=== PATIENT | female | born 1995 | race Caucasian/White ===

== ENCOUNTER 2017-04-13 15:27 | Emergency (ER) | payer SELFPAY ==
--- NOTE | 2017-04-13 15:53 | ER Document Report ---
ED Medical Screen (RME) - General Chief Complaint: Suicidal Ideation Stated Complaint: PSYCH EVAL Time Seen by Provider: 04/13/17 15:49 Mode of Arrival: Ambulatory Information source: Patient Notes: Patient is 21 year old who presents with suicidal ideations with plan of suffocation. She has history of psych illness, depression, borderline personality disorder, ADHD, PTSD. She endorses medication compliance. She denies any homicidal ideation, auditory, tactile, or visual hallucinations. She presents voluntary. She denies any other symptoms. TRAVEL OUTSIDE OF THE [place] IN LAST 30 DAYS: No - Related Data Allergies/Adverse Reactions: Coconut * [Coconut] Allergy (Verified 04/13/17 15:49) oxcarbazepine [From Trileptal] Allergy (Verified 04/13/17 15:49) Past Medical History - General Information source: Patient, Parent Psychiatric Medical History: Reports: Hx Anxiety, Hx Attention Deficit Hyperactivity Disorder, Hx Bipolar Disorder, Hx Depression - hx suicide attempts ; cutting/ biting self - Immunizations Immunizations up to date: Yes Hx Diphtheria, Pertussis, Tetanus Vaccination: Yes Review of Systems - Review of Systems Constitutional: No symptoms reported EENT: No symptoms reported Cardiovascular: No symptoms reported Respiratory: No symptoms reported Gastrointestinal: No symptoms reported Genitourinary: No symptoms reported Female Genitourinary: No symptoms reported Musculoskeletal: No symptoms reported Skin: No symptoms reported Hematologic/Lymphatic: No symptoms reported Neurological/Psychological: See HPI Physical Exam - Notes Notes: PHYSICAL EXAM: General: alert and oriented, well appearing, speaking in full sentences Lungs: CTAB CV: RRR, no murmur, normal S1 and S2. Psych: flat affect, +SI, no HI, no hallucinations Course - Re-evaluation Re-evalutation: 04/13/17 15:52 I have greeted and performed a rapid initial assessment of this patient. A comprehensive ED assessment and evaluation of the patient, analysis of test results and completion of the medical decision making process will be conducted by additional ED providers.
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
--- NOTE | 2017-04-13 17:24 | ER Document Report ---
ED General - General Chief Complaint: Suicidal Ideation Stated Complaint: PSYCH EVAL Time Seen by Provider: 04/13/17 15:49 Mode of Arrival: Ambulatory Information source: Patient, Parent Notes: Patient is 21 year old who presents with suicidal ideations with plan of suffocation. She has history of psych illness, depression, borderline personality disorder, ADHD, PTSD. She endorses medication compliance. She denies any homicidal ideation, auditory, tactile, or visual hallucinations. She presents voluntary. She denies any other symptoms. Her mother is present during initial evaluation. She denies any pain. TRAVEL OUTSIDE OF THE [place] IN LAST 30 DAYS: No - Related Data Allergies/Adverse Reactions: Coconut * [Coconut] Allergy (Verified 04/13/17 15:49) oxcarbazepine [From Trileptal] Allergy (Verified 04/13/17 15:49) Past Medical History - General Information source: Patient, Parent - Social History Smoking Status: Never Smoker Chew tobacco use (# tins/day): No Frequency of alcohol use: None Drug Abuse: None Family History: Reviewed & Not Pertinent Patient has suicidal ideation: Yes Patient has homicidal ideation: No Renal/ Medical History: Denies: Hx Peritoneal Dialysis Psychiatric Medical History: Reports: Hx Anxiety, Hx Attention Deficit Hyperactivity Disorder, Hx Bipolar Disorder, Hx Depression - hx suicide attempts ; cutting/ biting self - Immunizations Immunizations up to date: Yes Hx Diphtheria, Pertussis, Tetanus Vaccination: Yes Review of Systems - Review of Systems Constitutional: See HPI EENT: No symptoms reported Cardiovascular: No symptoms reported Respiratory: No symptoms reported Gastrointestinal: No symptoms reported Genitourinary: No symptoms reported Female Genitourinary: No symptoms reported Musculoskeletal: No symptoms reported Skin: No symptoms reported Hematologic/Lymphatic: No symptoms reported Neurological/Psychological: See HPI Physical Exam - Notes Notes: PHYSICAL EXAM: CONSTITUTIONAL: Alert and oriented, well-appearing and in no acute distress. HENT: Normocephalic, atraumatic. Ear canals without erythema or foreign body, TMs pearly gonzalez with good bony landmarks. Nares clear without erythema, septal hematoma or deviation, airway patent. Oropharynx clear without erythema, tonsilar exudate or malocclusion. Trachea midline. Uvula midline. Moist mucous membranes. EYES: Pupils equal round and reactive to light, EOM intact. Sclera anicteric, conjunctiva are normal. No entrapment. NECK: supple without lymphadenopathy. No midline tenderness or paraspinous muscle spasms. No step-offs or deformities. ROM intact. HEART: Regular rate and rhythm without murmurs. LUNGS: CTAB and equal. No wheezes, rales or rhonchi. GI: Normactive bowel sounds. Nontender, non-distended. No organomegaly. no CVAT. BACK: nontender, no paraspinous spasm, 5+/5 strengths, DTRs 2+, SLR -. EXTREMITIES: Normal range of motion, no pitting edema. No cyanosis. Cap Refill < 3 seconds. NEURO: Cranial nerves grossly intact. Normal sensory/motor exams. PSYCH: Normal mood, affect. SKIN: Warm and dry. Normal turgor. No rashes or lesions noted. Course - Re-evaluation Re-evalutation: 04/13/17 17:55 Patient seen and evaluated. She does endorse suicidal ideations. She was evaluated by psych triage and was discussed with Dr. Stafford, neuropsych escalation engineer who recommended that she did not meet IVC criteria. It was explained that we could not place nursing home from the emergency department and patient states " I don't want short term" and that she feels safe at home with her mother and stepfather. She is going to therapy at [facility], seeing therapist Catrina Chand and she states this is "helping a lot." Per Dr. Stafford's recommendations, patient is to d/c trazodone as this could be contributing to her nightmares and recommends 0.1 mg clonidine qhs. Discussed with patient and patient's mother who are in agreement with plan. I have consulted with the supervisory physician per [facility] guidelines. Discharge - Discharge Clinical Impression: Major depressive disorder, recurrent, unspecified Qualifiers: Active/Remission status: currently active Major depression episode severity: moderate Qualified Code(s): F33.1 - Major depressive disorder, recurrent, moderate Condition: Stable Disposition: HOME, SELF-CARE Additional Instructions: Discontinue trazodone Start taking 0.1 mg clonidine once daily at night before sleep. Follow-up with your therapist as directed. Return if symptoms worsen. Prescriptions: Clonidine HCl 0.1 mg PO QHS #30 tablet
== END 2017-04-13 18:15 | disposition home or self-care (01) ==
LOC: ER 15:27
DX: F33.1 Major depressive disorder, recurrent, moderate (principal); R45.851 Suicidal ideations
CPT/HCPCS: 99285

== ENCOUNTER → 2018-05-06 | Outpatient (CLI) | payer OTHER ==
[2018-05-06 08:38] LABS: ABSOLUTE EOSINOPHILS # (AUTO) 0.5 10^3/uL (0.0-0.6); ABSOLUTE LYMPHOCYTES (AUTO) 2.4 10^3/uL (0.5-4.7); ABSOLUTE MONOCYTES (AUTO) 0.6 10^3/uL (0.1-1.4); BASOPHILS % (AUTO) 0.5 % (0-2); HEMATOCRIT 37.7 % (36.0-47.0); HEMOGLOBIN 12.9 g/dL (12.0-15.5); LYMPHOCYTES % (AUTO) 32.1 % (13-45); MEAN CORPUSCULAR HEMOGLOBIN 29.8 pg (27.0-33.4); MEAN CORPUSCULAR HGB CONC 34.3 g/dL (32.0-36.0); MEAN CORPUSCULAR VOLUME 87 fl (80-97); MONOCYTES % (AUTO) 7.7 % (3-13); PLATELET COUNT 297 10^3/uL (150-450); RED BLOOD COUNT 4.34 10^6/uL (3.72-5.28); SEGMENTED NEUTROPHILS % (AUTO) 53.7 % (42-78); TOTAL CELLS COUNTED % (AUTO) 100 %; WHITE BLOOD COUNT 7.5 10^3/uL (4.0-10.5)
[2018-05-06 09:08] LABS: ALANINE AMINOTRANSFERASE 17 U/L (9-52); ALBUMIN 3.8 g/dL (3.5-5.0); ALKALINE PHOSPHATASE 64 U/L (38-126); ANION GAP 6 (5-19); ASPARTATE AMINO TRANSFERASE 23 U/L (14-36); BILIRUBIN,DIRECT 0.2 mg/dL (0.0-0.4); BILIRUBIN,TOTAL 0.5 mg/dL (0.2-1.3); BLOOD UREA NITROGEN 8 mg/dL (7-20); CALCIUM 9.1 mg/dL (8.4-10.2); CARBON DIOXIDE 26 mmol/L (22-30); CHLORIDE 107 mmol/L (98-107); CHOLESTEROL 193.22 mg/dL (0-200); GLUCOSE 78 mg/dL (75-110); SODIUM 138.9 mmol/L (137-145); TOTAL PROTEIN 6.4 g/dL (6.3-8.2); TRIGLYCERIDES 97 mg/dL (<150)
[2018-05-06 09:19] LABS: DIRECT LDL 102 mg/dL (<100)
== END ==
LOC: CCC 07:10
DX: R51 Headache (principal); R63.5 Abnormal weight gain
CPT/HCPCS: 36415; 80053; 80061; 83036; 84443; 85025

== ENCOUNTER → 2018-05-18 | Outpatient (CLI) | payer OTHER ==
--- NOTE | 2018-05-18 10:39 | RADIOLOGY REPORT (SQ) ---
EXAM DESCRIPTION: MRI HEAD COMBO COMPLETED DATE/TIME: 05/18/2018 9:42 am REASON FOR STUDY: HEADACHES R51 HEADACHE COMPARISON: None. TECHNIQUE: Multiplanar imaging includes noncontrasted T1, T2, FLAIR, diffusion with ADC map and post gadolinium contrast T1 sequences. Images stored on PACS. CONTRAST TYPE AND DOSE: 15 mL Dotarem. RENAL FUNCTION: None required. The patient is less than 50 years old. LIMITATIONS: None. FINDINGS: ANATOMY: No anomalies. Normal vascular flow voids. Pituitary fossa normal. CSF SPACES: Normal in size and contour. No hemorrhage. CEREBRUM: Sulci and gyri normal in size and contour. Normal white matter signal on FLAIR imaging. No evidence of hemorrhage, mass, or extraaxial fluid collection. No abnormal enhancement post contrast. POSTERIOR FOSSA: No signal alteration. No hemorrhage. No edema, masses, or mass effect. Internal echo tory canals, cerebellopontine angles, mastoids normal. No enhancing lesions. No abnormal enhancement post contrast. DIFFUSION IMAGING: Negative for acute or subacute infarction. ORBITS: No masses. Globes normal. PARANASAL SINUSES: No fluid levels. Mucosa normal. OTHER: No other significant finding. IMPRESSION: NORMAL MRI OF THE BRAIN WITHOUT AND WITH INTRAVENOUS GADOLINIUM CONTRAST. EVIDENCE OF ACUTE STROKE: NO. TECHNICAL DOCUMENTATION: JOB ID: [id number] [employer]- All Rights Reserved Reading location - IP/workstation name: [email or web address]
== END ==
LOC: RAD 08:26
DX: R51 Headache (principal)
CPT/HCPCS: 70553; A9576

== ENCOUNTER 2018-09-04 17:52 | Emergency (ER) | payer OTHER ==
[2018-09-04] MEDS ORDERED: CLINDAMYCIN 600 MG/D5W RTU 600 MG/50 ML RTUPB IV ONE (19:31)
--- NOTE | 2018-09-04 19:31 | ER Document Report ---
ED Medical Screen (RME) - General Chief Complaint: Abscess Stated Complaint: ABSCESS Time Seen by Provider: 09/04/18 19:25 Primary Care Provider: [facility] [Primary Care Provider] - Follow up as needed TRAVEL OUTSIDE OF THE [place] IN LAST 30 DAYS: No - HPI Notes: 09/04/18 19:29 Patient is a 23-year-old female with no significant past medical history who presents complaining of possible abscess near her rectum for the past 2 weeks. Patient states that she has pain associated and swelling. She is not sure if there is any drainage. She has not had an abscess in this area before. She is otherwise eating and drinking without difficultly. She is urinating normally. Patient is still able to have bowel movements, but does have a burning pain in doing so. Denies LEMON, fever, neck pain, URI, CP, SOB, Abd pain. I have treated and performed a rapid initial assessment of this patient. A comprehensive ED assessment and evaluation of the patient, analysis of test results and completion of medical decision making process will be conducted by additional ED providers. PHYSICAL EXAMINATION: GENERAL: Well-appearing, well-nourished and in no acute distress. A&Ox4. Answers questions appropriately. Buttocks: with female RN, chanel, present. Brief exam shows fluctuant, tender, erythemic area near the rectum on the left buttock but will need further evalua tion in a gown and on a bed. - Related Data Allergies/Adverse Reactions: Coconut * [Coconut] Allergy (Verified 09/04/18 17:53) oxcarbazepine [From Trileptal] Allergy (Verified 09/04/18 17:53) Past Medical History Renal/ Medical History: Denies: Hx Peritoneal Dialysis Psychiatric Medical History: Reports: Hx Anxiety, Hx Attention Deficit Hyperactivity Disorder, Hx Bipolar Disorder, Hx Depression - hx suicide attempts; cutting/ biting self - Immunizations Immunizations up to date: Yes Hx Diphtheria, Pertussis, Tetanus Vaccination: Yes Physical Exam - Vital signs Vitals: Temp Pulse Resp BP Pulse Ox 98 F 87 20 118/65 96 09/04/18 18:03 09/04/18 18:03 09/04/18 18:03 09/04/18 18:03 09/04/18 18:03 Course - Vital Signs Vital signs: Temp Pulse Resp BP Pulse Ox 98 F 87 20 118/65 96 09/04/18 18:03 09/04/18 18:03 09/04/18 18:03 09/04/18 18:03 09/04/18 18:03 Doctor's Discharge - Discharge Referrals: [facility] [Primary Care Provider] - Follow up as needed
[2018-09-04 19:54] LABS: APPEARANCE,URINE CLOUDY; BILIRUBIN,URINE NEGATIVE (NEGATIVE); COLOR,URINE AMBER; GLUCOSE, URINE NEGATIVE (NEGATIVE); KETONES,URINE TRACE mg/dL (NEGATIVE); LEUKOCYTE ESTERASE,URINE MODERATE (NEGATIVE); NITRITE,URINE NEGATIVE (NEGATIVE); PROTEIN,URINE 100 mg/dL (NEGATIVE); URINE SPECIFIC GRAVITY 1.029
[2018-09-04 20:22] LABS: ABSOLUTE BASOPHILS # (AUTO) 0.1 10^3/uL (0.0-0.2); ABSOLUTE EOSINOPHILS # (AUTO) 0.1 10^3/uL (0.0-0.6); ABSOLUTE LYMPHOCYTES (AUTO) 2.1 10^3/uL (0.5-4.7); ABSOLUTE MONOCYTES (AUTO) 0.7 10^3/uL (0.1-1.4); ABSOLUTE NEUT (AUTO) 9.2 10^3/uL (1.7-8.2); BASOPHILS % (AUTO) 0.7 % (0-2); EOSINOPHILS % (AUTO) 0.4 % (0-6); HEMOGLOBIN 12.6 g/dL (12.0-15.5); LYMPHOCYTES % (AUTO) 17.2 % (13-45); MEAN CORPUSCULAR HEMOGLOBIN 27.2 pg (27.0-33.4); MEAN CORPUSCULAR HGB CONC 32.3 g/dL (32.0-36.0); MEAN CORPUSCULAR VOLUME 84 fl (80-97); MONOCYTES % (AUTO) 5.7 % (3-13); PLATELET COUNT 317 10^3/uL (150-450); RED BLOOD COUNT 4.64 10^6/uL (3.72-5.28); RED CELL DISTRIBUTION WIDTH 14.7 % (11.5-14.0); TOTAL CELLS COUNTED % (AUTO) 100 %; WHITE BLOOD COUNT 12.2 10^3/uL (4.0-10.5)
[2018-09-04 20:38] LABS: ALANINE AMINOTRANSFERASE 22 U/L (9-52); ALBUMIN 4.3 g/dL (3.5-5.0); ALKALINE PHOSPHATASE 85 U/L (38-126); ANION GAP 12 (5-19); ASPARTATE AMINO TRANSFERASE 18 U/L (14-36); BILIRUBIN,DIRECT 0.2 mg/dL (0.0-0.4); BILIRUBIN,TOTAL 0.5 mg/dL (0.2-1.3); BLOOD UREA NITROGEN 7 mg/dL (7-20); CALCIUM 9.9 mg/dL (8.4-10.2); CARBON DIOXIDE 26 mmol/L (22-30); CHLORIDE 104 mmol/L (98-107); GLUCOSE 86 mg/dL (75-110); POTASSIUM 4.3 mmol/L (3.6-5.0); SODIUM 141.5 mmol/L (137-145); TOTAL PROTEIN 7.1 g/dL (6.3-8.2)
[2018-09-04] MEDS ORDERED: KETOROLAC TROMETHAMINE INJ/PF 30 MG/1 ML SDV IV ONE (23:47)
[2018-09-04] MEDS ORDERED: SULFAMETHOXAZOLE/TRIMETHOPRIM 800-160 MG TABLET PO ONE (23:48)
--- NOTE | 2018-09-04 23:52 | ER Document Report ---
ED General - General Chief Complaint: Abscess Stated Complaint: ABSCESS Time Seen by Provider: 09/04/18 19:25 [facility] [NO LOCAL MD] - Follow up in 3-5 days Notes: Patient is a 23-year-old female without chronic medical problems who presents with an area of swelling and pain on her left inner buttock. Patient states that this area started approximately 2 weeks ago and has been getting progressively more swollen and painful since that time. Notes a severe, throbbing, constant pain to the area. Sitting on the area seems to worsen the pain. Nothing improves the pain. Denies any history of similar symptoms in the past. Denies fever or constitutional symptoms. Has not seen her primary care doctor regarding today's concerns. TRAVEL OUTSIDE OF THE [place] IN LAST 30 DAYS: No - Related Data Allergies/Adverse Reactions: Coconut * [Coconut] Allergy (Verified 09/04/18 17:53) oxcarbazepine [From Trileptal] Allergy (Verified 09/04/18 17:53) Past Medical History - Social History Smoking Status: Unknown if Ever Smoked Family History: Reviewed & Not Pertinent Patient has suicidal ideation: No Patient has homicidal ideation: No Renal/ Medical History: Denies: Hx Peritoneal Dialysis Psychiatric Medical History: Reports: Hx Anxiety, Hx Attention Deficit Hyperactivity Disorder, Hx Bipolar Disorder, Hx Depression - hx suicide attempts; cutting/ biting self - Immunizations Immunizations up to date: Yes Hx Diphtheria, Pertussis, Tetanus Vaccination: Yes Physical Exam - Vital signs Vitals: Temp Pulse Resp BP Pulse Ox 98 F 87 20 118/65 96 09/04/18 18:03 09/04/18 18:03 09/04/18 18:03 09/04/18 18:03 09/04/18 18:03 Interpretation: Normal Notes: PHYSICAL EXAMINATION: GENERAL: Appears moderately uncomfortable but in no acute distress HEAD: Atraumatic, normocephalic. EYES: Pupils equal round and reactive to light, extraocular movements intact, sclera anicteric, conjunctiva are normal. ENT: nares patent, oropharynx clear without exudates. Moist mucous membranes. NECK: Normal range of motion LUNGS: Breath sounds clear to auscultation bilaterally and equal. No wheezes rales or rhonchi. HEART: Regular rate and rhythm without murmurs ABDOMEN: Soft, nontender, normoactive bowel sounds. No guarding, no rebound. No masses appreciated. Rectal: There is a gluteal abscess approximately 4 cm lateral to the anus. Digital rectal exam without evidence of communication of abscess. The abscess is open and draining purulent drainage EXTREMITIES: Normal range of motion, no pitting or edema. No cyanosis. NEUROLOGICAL: No focal neurological deficits. Moves all extremities spontaneously and on command. PSYCH: Normal mood, normal affect. SKIN: Warm, Dry, normal turgor, no rashes or lesions noted. Course - Re-evaluation Re-evalutation: 09/04/18 23:49 Patient presents with a left intergluteal abscess without any evidence of rectocutaneous fistula on digital exam. The abscess with early draining when I began to move her buttock. The area was further incised and drained to allow for better removal of purulent material and placement of packing. No fever or constitutional symptoms. No starting saline. No indication for imaging or labs at this point. Patient has been started on trimethoprim sulfamethoxazole, [id number] analgesics. At this time will discharge with return precautions and follow-up recommendations. Verbal discharge instructions given a the bedside and opportunity for questions given. Medication warnings reviewed. Patient is in agreement with this plan and has verbalized understanding of return precautions and the need for primary care follow-up in the next 24-72 hours. - Vital Signs Vital signs: Temp Pulse Resp BP Pulse Ox 97.3 F 79 16 120/63 97 09/05/18 00:27 09/05/18 00:27 09/05/18 00:27 09/05/18 00:27 09/05/18 00:27 - Laboratory Result Diagrams: 09/04/18 19:50 09/04/18 19:50 Laboratory results interpreted by me: 09/04/18 09/04/18 19:38 19:50 WBC 12.2 H RDW 14.7 H Absolute Neutrophils 9.2 H Urine Protein 100 H Urine Ketones TRACE H Urine Blood SMALL H Urine Urobilinogen 4.0 H Ur Leukocyte Esterase MODERATE H Procedures - Incision and Drainage Left Buttock Type: Simple Anesthetic type: 1% Lidocaine mL's of anesthetic: 3 Blade size: 11 I&D procedure: Betadine prep applied, Iodoform packing placed Incision Method: Incision made by scalpel Amount/type of drainage: 10 cc purulent drainage Discharge - Discharge Clinical Impression: Abscess, gluteal, left Condition: Good Disposition: HOME, SELF-CARE Additional Instructions: You were seen for an abscess that required drainage. If the packing has not fallen out within 24 hours please remove it on your own. Please clean this area with soap and water twice daily after removal of packing. Dress the area after each cleaning. Please return if you develop fever (>100.4), vomiting, the pain at the site worsens, you notice spreading redness from the area, or you have any other symptoms that are concerning to you. For your pain: Take ibuprofen 600 mg and acetaminophen 1000 mg every 6 hours together as needed for pain. Prescriptions: Sulfamethoxazole/Trimethoprim [Bactrim Ds Tablet] 2 tab PO BID #28 tablet Referrals: [facility] [NO LOCAL MD] - Follow up in 3-5 days
[2018-09-05 00:29] VITALS: BP 120/63
== END 2018-09-05 00:27 | disposition home or self-care (01) ==
LOC: ER 17:52
DX: L02.31 Cutaneous abscess of buttock (principal)
CPT/HCPCS: 99283; 36415; 84703; 85025; 80053; 81001; 10060; A6266; J1885

== ENCOUNTER 2018-09-22 06:16 | Emergency (ER) | payer OTHER ==
[2018-09-22] MEDS ORDERED: TRIAMCINOLONE ACETONIDE 0.1% CREAM 15 GM TOP ONE (08:29)
[2018-09-22] MEDS ORDERED: LIDOCAINE 2% VISCOUS SOLN 20 ML UDCUP PO ONE (08:29)
--- NOTE | 2018-09-22 08:32 | ER Document Report ---
HPI - HPI Patient complains to provider of: rash on butt and ulcer in mouth Time Seen by Provider: 09/22/18 08:07 Pain Level: 5 Context: 23 female presents emergency intragluteal crease bilateral and and an ulcer on her lip. She was seen at [facility] yesterday and was given tetracycline for flushes in her mouth and prednisone. After doing to swishes with the tetracycline she says she started developing a rash on her butt and she had some nystatin powder laying around she should try to use that once with no resolution. She said the ulcer is been present for 1 week and has not been improving. She denies any fevers or chills, dysphagia, sensation of her throat closing up, shortness of breath, abdominal pain or vomiting, or any other cutaneous eruption. No other complaints - CONSTITUTIONAL Constitutional: DENIES: Fever, Chills - REPRODUCTIVE Reproductive: DENIES: : Past Medical History - Social History Smoking Status: Current Every Day Smoker Family History: Reviewed & Not Pertinent Patient has suicidal ideation: No Patient has homicidal ideation: No Renal/ Medical History: Denies: Hx Peritoneal Dialysis Psychiatric Medical History: Reports: Hx Anxiety, Hx Attention Deficit Hyperactivity Disorder, Hx Bipolar Disorder, Hx Depression - hx suicide attempts; cutting/ biting self - Immunizations Immunizations up to date: Yes Hx Diphtheria, Pertussis, Tetanus Vaccination: Yes Vertical Provider Document - CONSTITUTIONAL Notes: PHYSICAL EXAMINATION: Reviewed vital signs and charting by RN GENERAL: Alert, interacts well. No acute distress. HEAD: Normocephalic, atraumatic. EYES: Pupils equal and round. Extraocular movements intact. ENT: Oral mucosa moist, tongue midline. NECK: Full range of motion. Trachea midline. LUNGS: Clear to auscultation bilaterally, no wheezes, rales, or rhonchi. No resp iratory distress. HEART: Regular rate and rhythm. No murmur ABDOMEN: soft, non-tender. No distention. Bowel sounds present EXTREMITIES: Moves all 4 extremities spontaneously. No edema, No cyanosis. PSYCH: Normal affect, normal mood. SKIN: Aphthous ulcer on the lower lip left side, bilateral intergluteal spot of erythema that runs the course of the crease approximately 1 inch wide, no pustules, no open wound, appears to be flat with no surrounding underlying erythema consistent with cellulitis - INFECTION CONTROL TRAVEL OUTSIDE OF THE [place] IN LAST 30 DAYS: No Course - Re-evaluation Re-evalutation: 09/22/18 08:41 Well-appearing and nontoxic. Patient was seen here 2 weeks ago and placed on Bactrim but she said she did not tolerate it and did not complete the course. She said she could not tolerate the tetracycline oral rinses and discontinued it. Rash is consistent with a heat rash and the ulcer on her lip consistent with an aphthous ulcer. I have given her viscous lidocaine for symptomatic treatment of the ulcer, I have given her triamcinolone to use on the rash on her intergluteal folds, and instructed her to use nystatin alternating with the triamcinolone. I also told her to continue taking her prednisone and to stop taking the tetracycline. She is stable for discharge. - Vital Signs Vital signs: Temp Pulse Resp BP Pulse Ox 97.8 F 90 16 131/79 H 98 09/22/18 06:23 09/22/18 06:23 09/22/18 06:23 09/22/18 06:23 09/22/18 06:23 Discharge - Discharge Clinical Impression: Aphthous ulcer, Rash Condition: Good Disposition: HOME, SELF-CARE Additional Instructions: You were seen in the emergency department this morning for an aphthous ulcer on your lip and for a rash in between your gluteal folds. For the aphthous ulcer, you can use the light viscous lidocaine and place him on a cottonball and then hold it up against the ulcer and it well number to give you temporary relief. Do that every 2-3 hours or as needed before eating. For the rash between your gluteal crease, you can continue to use the nystatin powder and I have given you a medication called triamcinolone that you can use 3 times a day to help calm it down. This is in the same class as hydrocortisone but a little bit stronger medication. Also, continue taking the prednisone that your doctor prescribed yesterday but please stop taking the tetracycline. If you develop worsening rash, you get a reaction from the lidocaine, your throat starts to close up, your lip swells, you develop acute shortness of breath and your throat is getting tight, you get intractable vomiting and upset stomach, or the rash spreads and you get hives immediately return to the emergency department as t hese are signs of an allergic reaction. Follow-up with your primary doctor in the next 1 to 2 weeks.
[2018-09-22 09:10] VITALS: BP 129/76
== END 2018-09-22 09:10 | disposition home or self-care (01) ==
LOC: ER 06:16
DX: K12.0 Recurrent oral aphthae (principal); R21 Rash and other nonspecific skin eruption; Z79.899 Other long term (current) drug therapy; F17.200 Nicotine dependence, unspecified, uncomplicated
CPT/HCPCS: 99282; J3490 ×2

== ENCOUNTER 2018-12-17 17:23 | Emergency (ER) | payer OTHER ==
--- NOTE | 2018-12-17 18:22 | ER Document Report ---
HPI - HPI Patient complains to provider of: L knee injury Time Seen by Provider: 12/17/18 18:12 Pain Level: 4 Context: 23-year-old female with anxiety, major depressive disorder, ADHD, PTSD presents to the emergency department for a left knee injury sustained prior to arrival. Patient states that she struck her knee on a "dog step" and has since been unable to bear weight on it at all. There was an ice pack in place by EMS when she arrived. Patient states that she cannot extend her knee or flex her quadricep secondary to pain. Denies any numbness/tingling/paralysis. Patient is able to wiggle her toes, flex her hip, and move her ankle. - REPRODUCTIVE LMP: November Reproductive: DENIES: : Past Medical History - Social History Smoking Status: Current Every Day Smoker Family History: Reviewed & Not Pertinent Renal/ Medical History: Denies: Hx Peritoneal Dialysis Psychiatric Medical History: Reports: Hx Anxiety, Hx Attention Deficit Hyperactivity Disorder, Hx Bipolar Disorder, Hx Depression - hx suicide attempts; cutting/ biting self - Immunizations Immunizations up to date: Yes Hx Diphtheria, Pertussis, Tetanus Vaccination: Yes Vertical Provider Document - CONSTITUTIONAL Notes: PHYSICAL EXAMINATION: Reviewed vital signs and charting by RN GENERAL: Alert, interacts well. No acute distress. HEAD: Normocephalic, atraumatic. EYES: Pupils equal and round. Extraocular movements intact. ENT: Oral mucosa moist, tongue midline. EXTREMITIES: Moves all extremities spontaneously except for her left lower extremity at the knee, I was easily able to passively extend her knee and when I released it she was able to bring it down slowly and controlled, no laceration or abrasion, no tenderness to palpation of the joint lines but she has tenderness to palpation over the patella but no gross deformity seen. No edema, No cyanosis. PSYCH: Normal affect, normal mood. SKIN: Warm, dry, normal turgor. No rashes or lesions noted. - INFECTION CONTROL TRAVEL OUTSIDE OF THE [place] IN LAST 30 DAYS: No Course - Re-evaluation Re-evalutation: 12/17/18 19:28 Knee X-Ray 12/17/18 18:18 IMPRESSION: No radiographic evidence for acute fracture at the left knee. See above for radiology. No evidence of acute fracture dislocation, most likely a soft tissue injury. Plan is to give her an Eddie wrap and provide her crutches for ambulation. Patient is stable for discharge. - Vital Signs Vital signs: Temp Pulse Resp BP Pulse Ox 98.0 F 92 18 118/67 94 12/17/18 17:33 12/17/18 17:33 12/17/18 17:33 12/17/18 17:33 12/17/18 17:33 Discharge - Discharge Clinical Impression: Left knee injury Qualifiers: Encounter type: initial encounter Qualified Code(s): S89.92XA - Unspecified injury of left lower leg, initial encounter Condition: Good Disposition: HOME, SELF-CARE Instructions: Use of Crutches ([facility]), Suspected Internal Knee Injury ([facility]) Additional Instructions: You were seen in the emergency department this afternoon for left knee injury. X-ray did not show any evidence that you broke your knee. With that, we have placed you in an Eddie wrap to help with comfort and provided you with crutches to help you ambulate. Please follow-up with your primary doctor in the next several days if your pain does not improve. Please return to the emergency department if your toes start to turn purple or blue, you lose feeling in your leg, you lose use of your leg, or you have any other concerning symptoms.. Referrals: [facility] [Primary Care Provider] - Follow up as needed
--- NOTE | 2018-12-17 19:15 | RADIOLOGY REPORT (SQ) ---
EXAM DESCRIPTION: KNEE LEFT 3 VIEWS COMPLETED DATE/TIME: 12/17/2018 6:45 pm REASON FOR STUDY: Trauma L knee COMPARISON: None. NUMBER OF VIEWS: Three views. TECHNIQUE: AP, lateral, and sunrise patella radiographic images acquired of the left knee. LIMITATIONS: None. FINDINGS: MINERALIZATION: Normal. BONES: No acute fracture or dislocation. JOINT: No effusion. SOFT TISSUES: No soft tissue swelling. No radio-opaque foreign body. IMPRESSION: No radiographic evidence for acute fracture at the left knee. TECHNICAL DOCUMENTATION: JOB ID: [id number] 2010 [employer]- All Rights Reserved Reading location - IP/workstation name: [email or web address]
[2018-12-17 20:26] VITALS: BP 121/71
== END 2018-12-17 20:31 | disposition home or self-care (01) ==
LOC: ER 17:23
DX: S89.92XA Unspecified injury of left lower leg, initial encounter (principal); W22.8XXA Striking against or struck by other objects, initial encounter; F17.200 Nicotine dependence, unspecified, uncomplicated
CPT/HCPCS: 99283

== ENCOUNTER 2019-01-06 14:46 | Emergency (ER) | payer OTHER ==
--- NOTE | 2019-01-06 15:17 | ER Document Report ---
ED Medical Screen (RME) - General Chief Complaint: Suicidal Ideation Stated Complaint: SUICIADAL IDEATION Time Seen by Provider: 01/06/19 15:03 Primary Care Provider: LANDEN PALMER [Primary Care Provider] - Follow up as needed Notes: Patient is a 23-y/o female with a history of suicidal ideation who presents after tying a ribbon around her neck this morning. She states that her mother is leaving with her boyfriend and found out a few days ago. She attempted to commit suicide with the ribbon. Her father found her and was able to release the ribbon. States she came close to loosing consciousness, but did not. Exam: 2 Small abrasians noted to neck. Patient able to move neck with no difficulty. I have greeted and performed a rapid initial assessment of this patient. A comprehensive ED assessment and evaluation of the patient, analysis of test results and completion of medical decision making process will be conducted by an additional ED providers. TRAVEL OUTSIDE OF THE U.S. IN LAST 30 DAYS: No - Related Data Allergies/Adverse Reactions: Coconut * [Coconut] Allergy (Verified 09/04/18 17:53) oxcarbazepine [From Trileptal] Allergy (Verified 09/04/18 17:53) Past Medical History Renal/ Medical History: Denies: Hx Peritoneal Dialysis Psychiatric Medical History: Reports: Hx Anxiety, Hx Attention Deficit Hyperactivity Disorder, Hx Bipolar Disorder, Hx Depression - hx suicide attempts; cutting/ biting self - Immunizations Immunizations up to date: Yes Hx Diphtheria, Pertussis, Tetanus Vaccination: Yes Doctor's Discharge - Discharge Referrals: LANDEN PALMER [Primary Care Provider] - Follow up as needed
--- NOTE | 2019-01-06 15:20 | ER Document Report ---
ED Psych Disorder / Suicide <ALONZO DAY - Last Filed: 01/06/19 16:04> - General Mode of Arrival: Ambulatory Information source: Patient TRAVEL OUTSIDE OF THE [place] 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 Pt. with prior SI and suicide attempts, Suicidal attempt Onset: Just prior to arrival <BAILEY ZELAYA - Last Filed: 01/06/19 17:53> <ARIANA MANDUJANO - Last Filed: 01/08/19 01:34> - General Chief Complaint: Suicidal Ideation Stated Complaint: SUICIADAL IDEATION Time Seen by Provider: 01/06/19 15:03 Primary Care Provider: [facility] [Primary Care Provider] - Follow up as needed - Related Data Allergies/Adverse Reactions: Coconut * [Coconut] Allergy (Verified 01/06/19 16:41) oxcarbazepine [From Trileptal] Allergy (Verified 01/06/19 16:41) Past Medical History - Social History Family History: Reviewed & Not Pertinent Renal/ Medical History: Denies: Hx Peritoneal Dialysis Psychiatric Medical History: Reports: Hx Anxiety, Hx Attention Deficit Hyperactivity Disorder, Hx Bipolar Disorder, Hx Depression - hx suicide attempts; cutting/ biting self - Immunizations Immunizations up to date: Yes Hx Diphtheria, Pertussis, Tetanus Vaccination: Yes <BAILEY ZELAYA - Last Filed: 01/06/19 17:53> - Social History Smoking Status: Unknown if Ever Smoked <ARIANA MANDUJANO - Last Filed: 01/08/19 01:34> Physical Exam - Vital signs Vitals: Temp Pulse Resp BP Pulse Ox 97.5 F 86 16 126/68 H 97 01/06/19 14:49 01/06/19 14:49 01/06/19 14:49 01/06/19 14:49 01/06/19 14:49 Course - Laboratory Result Diagrams: 01/06/19 15:55 01/06/19 15:55 <BAILEY ZELAYA - Last Filed: 01/06/19 17:53> - Laboratory Result Diagrams: 01/06/19 15:55 01/06/19 15:55 <ARIANA MANDUJANO - Last Filed: 01/08/19 01:34> - Re-evaluation Re-evalutation: 01/06/19 17:54 I have medically cleared this pt -- she will be going to [place] later this evening -- approx 8 pm 01/06/19 17:55 (BAILEY ZELAYA) - Vital Signs Vital signs: Temp Pulse Resp BP Pulse Ox 97.7 F 77 16 126/65 H 97 01/06/19 20:17 01/06/19 20:17 01/06/19 20:17 01/06/19 20:17 01/06/19 20:17 - Laboratory Laboratory results interpreted by me: 01/06/19 01/06/19 01/06/19 15:55 15:55 15:55 Hgb 11.9 L RDW 15.1 H BUN 6 L Glucose 70 L Urine Urobilinogen 2.0 H Ur Leukocyte Esterase TRACE H Salicylates < 1.0 L Acetaminophen < 10 L Discharge <ALONZO DAY - Last Filed: 01/06/19 16:04> <BAILEY ZELAYA - Last Filed: 01/06/19 17:53> <ARIANA MANDUJANO - Last Filed: 01/08/19 01:34> - Discharge Clinical Impression: Passive suicidal ideations Condition: Stable Disposition: PSYCH HOSP/UNIT Additional Instructions: You have been evaluated both medical and behavioral teams have been deemed appropriate for discharge. The behavioral health team has contacted [facility] center and has reserved a bed for you at 8 PM. You are encouraged to follow through with this voluntary placement to assist you in working through your current emotions. DEPRESSION: Your evaluation reveals that you have mental depression. While symptoms may be vague, they often include disturbance of sleep, fatigue, loss of appetite, and general loss of interest in life. While depression may be a side effect of drugs, or a reaction to a major change in your life, many cases have no known cause. If depression is acute, and related to a major loss in your life, you can expect it to clear completely with time. If you have been depressed a long time, are prone to repeated bouts of depression or low mood, or have been thinking of suicide, get help. Depression can be treated with anti-depressant medication and counselling. Long-term depression will often take a few weeks to clear, even with appropriate medication. Follow-up care is important. SUICIDAL IDEATION: Suicidal ideation is a common medical term for thoughts about suicide, which may be as detailed as a formulated plan, without the suicidal act itself. Although most people who undergo suicidal ideation do not commit suicide, some go on to make suicide attempts. The range of suicidal ideation varies greatly from fleeting to detailed planning, role playing, and unsuccessful attempts. While thoughts about suicide are common, most people do not carry out s erious actions to commit suicide. Based upon your evaluation and discussion with you, we do not believe you are currently at risk to act upon your thoughts of suicide. You have agreed to return to the Emergency Department, at any time, if you feel inclined to act upon your suicidal thoughts. FOLLOW-UP CARE: If you have been referred to a physician for follow-up care, call the physicians office for an appointment as you were instructed or within the next two days. If you experience worsening or a significant change in your symptoms, notify the physician immediately or return to the Emergency Department at any time for re-evaluation. Referrals: [facility] [Primary Care Provider] - Follow up as needed
--- NOTE | 2019-01-06 16:04 | PSYCHOLOGICAL NOTE ---
Psych Note - Psych Note Date seen by psych provider: 01/06/19 Time seen by psych provider: 15:30 Psych Note: Reason for Consult: Suicidal ideation Patient reports she arrived to [facility] ED via addiction social worker because she told her therapist she was was having thoughts of suicide and that her plan was to set herself on fired. She states that she smokes so she has a head cashier on her. She continued report that she tied ribbon around her throat twice today and her stepfather had to cut it off. She states that she did all this because she just found out her mom is moving to [place] with her boyfriend. She reports that this is bringing back memories; "I have waited 13 years and I feel like I ran her off." She continues to report that she has been inpatient psychiatric treatment 8 times and was just discharged from [facility] in [place] not "not even a week ago." She states she was in [facility] for approximately 1 week and that they did not change any of her meds they only added Vistaril. She reports that [facility] for approximately 6 months to 1 year. Patient states that she cannot remember all of her diagnoses but can remember "depression, anger management, schizo, bipolar, multi-personality disorder, ADHD, PTSD, OCD, and defiance disorder... There should be more but I cannot remember them all." Clinician asked for clarification of "schizo" which patient reports that she is "more schizophrenic. .. I'm not schizoaffective because I have never acted on them." Patient states she needs to go inpatient psychiatric treatment has been trying to go for the last 3 to 4 days but her stepfather would not bring her in. She states that she knew she told her therapist today they would have to commit her. She states she wants to go inpatient to "clear my head and start fresh and were, anger manageme nt." Patient states that she experiences both auditory and visual hallucinations "every day constantly." She reports that most of the time her visual hallucinations are black and white however every now and then there is color. She explains that she sees a little girl who splits her wrists. She states that the little girl is in black and white however the blood is red. Patient continued to report that she hears voices constantly in her head and confirms she is hearing them right now. Mobile case worker reports they were called to [facility] for patient. They report that the patient disclosed to her therapist during a teleconference therapy session that she attempted to kill herself twice today and that she had a plan to go out into the parking lot and set herself on fire. Patient reports that her stepfather is her boyfriend and they have been together for 6 years. Patient's mother is planning to move to [place] and the patient's step father plans to move also. Patient is alert and orientated to person, place, time and circumstance. Mood is euthymic with congruent as evidenced by smiling engaging with clinician. Patient reports passive suicidal ideation i.e. no plans means or intent. Denies homicidal ideation. Patient reports both auditory and visual hallucinations however patient's descriptions are not congruent with known manifestations. Delusions are absent behaviors congruent with an intact reality based presentation i.e. organized and linear thought process. Eye contact was well- maintained. Conversational speech is within normal rate, tone and prosody. Intellectual abilities appear to be within the average range. Attention and concentration are good. Insight, judgment, impulse control are fair. Borderline Personality Disorder Depression, by history Anxiety, by history R/O PTSD No medication recommendations at this time Impression/Plan: Patient is cleared from acute psychiatric services. Patient does not meet IVC criteria per [place] GS 122C. Patient reports passive suicidal ideation i.e. no plans means or intent. Patient just got out of inpatient psychiatric treatment less than 1 week ago from [facility]. Patient reports both auditory and visual hallucinations however patient's reports are not congruent with no manifestations. Patient reports experiencing auditory hallucinations constantly even during evaluation. She is not demonstrating any behaviors indicating that she is responding to internal stimuli i.e. maintains good eye contact, good attention and concentration, organized and linear convers ation. Patient is behavior is very attention seeking. Patient is very upset that her mother is moving to [place]. Voluntary bed is available at 8 PM at the [facility]. This placement can assist the patient to process her current emotions. Dr. Stafford was consulted to care management of this patient; attending physicians in agreement with recommendations and disposition.
[2019-01-06 16:13] LABS: ABSOLUTE BASOPHILS # (AUTO) 0.1 10^3/uL (0.0-0.2); ABSOLUTE LYMPHOCYTES (AUTO) 2.4 10^3/uL (0.5-4.7); ABSOLUTE MONOCYTES (AUTO) 0.5 10^3/uL (0.1-1.4); ABSOLUTE NEUT (AUTO) 5.2 10^3/uL (1.7-8.2); BASOPHILS % (AUTO) 0.7 % (0-2); EOSINOPHILS % (AUTO) 0.5 % (0-6); HEMATOCRIT 36.3 % (36.0-47.0); HEMOGLOBIN 11.9 g/dL (12.0-15.5); LYMPHOCYTES % (AUTO) 29.7 % (13-45); MEAN CORPUSCULAR HGB CONC 32.8 g/dL (32.0-36.0); MEAN CORPUSCULAR VOLUME 86 fl (80-97); PLATELET COUNT 327 10^3/uL (150-450); RED BLOOD COUNT 4.24 10^6/uL (3.72-5.28); RED CELL DISTRIBUTION WIDTH 15.1 % (11.5-14.0); SEGMENTED NEUTROPHILS % (AUTO) 63.1 % (42-78); TOTAL CELLS COUNTED % (AUTO) 100 %; WHITE BLOOD COUNT 8.2 10^3/uL (4.0-10.5)
[2019-01-06 16:21] LABS: APPEARANCE,URINE SLIGHTLY-CLOUDY; BILIRUBIN,URINE NEGATIVE (NEGATIVE); COLOR,URINE YELLOW; GLUCOSE, URINE NEGATIVE (NEGATIVE); KETONES,URINE NEGATIVE (NEGATIVE); LEUKOCYTE ESTERASE,URINE TRACE (NEGATIVE); NITRITE,URINE NEGATIVE (NEGATIVE); PROTEIN,URINE NEGATIVE (NEGATIVE); URINE SPECIFIC GRAVITY 1.013
[2019-01-06 16:39] LABS: ALBUMIN 4.1 g/dL (3.5-5.0); ALKALINE PHOSPHATASE 61 U/L (38-126); ANION GAP 8 (5-19); ASPARTATE AMINO TRANSFERASE 17 U/L (14-36); BILIRUBIN,DIRECT 0.1 mg/dL (0.0-0.4); BILIRUBIN,TOTAL 0.2 mg/dL (0.2-1.3); BLOOD UREA NITROGEN 6 mg/dL (7-20); CALCIUM 9.4 mg/dL (8.4-10.2); CARBON DIOXIDE 25 mmol/L (22-30); CHLORIDE 107 mmol/L (98-107); GLUCOSE 70 mg/dL (75-110); POTASSIUM 4.3 mmol/L (3.6-5.0); TOTAL PROTEIN 6.7 g/dL (6.3-8.2)
[2019-01-06 16:40] LABS: URINE AMPHETAMINES SCREEN NEGATIVE; URINE BARBITURATES SCREEN NEGATIVE; URINE BENZODIAZEPINES SCREEN NEGATIVE; URINE COCAINE SCREEN NEGATIVE; URINE MARIJUANA (THC) SCREEN NEGATIVE; URINE METHADONE SCREEN NEGATIVE
[2019-01-06 16:43] LABS: ACETAMINOPHEN < 10 ug/mL (10-30); ALCOHOL < 10 mg/dL (NONE DETECTED); SALICYLATE < 1.0 mg/dL (2.0-20.0)
[2019-01-06 16:53] LABS: URINE PHENCYCLIDINE SCREEN NEGATIVE
[2019-01-06 20:21] VITALS: BP 126/65
--- NOTE | 2019-01-07 08:58 | EKG REPORT ---
SEVERITY:- ABNORMAL ECG - SINUS RHYTHM BORDERLINE Q WAVES IN INFERIOR LEADS INFERIOR Q WAVES, PROBABLY NORMAL VARIATION BORDERLINE T ABNORMALITIES, ANT-LAT LEADS : Confirmed by: David Mtz 07-Jan-2019 08:58:14
== END 2019-01-06 20:24 ==
LOC: ER 14:46
DX: R45.851 Suicidal ideations (principal); S10.91XA Abrasion of unspecified part of neck, initial encounter; X83.8XXA Intentional self-harm by other specified means, initial encounter
CPT/HCPCS: 36415; 80053; 80307; 81001; 81025; 85025; 93005; 93010; 99285

== ENCOUNTER 2019-01-30 16:55 | Emergency (ER) | payer OTHER ==
--- NOTE | 2019-01-30 17:04 | ER Document Report ---
ED Medical Screen (RME) - General Chief Complaint: Psych Problem Stated Complaint: IVC W PAPERS Time Seen by Provider: 01/30/19 17:00 Primary Care Provider: LANDEN PALMER [Primary Care Provider] - Follow up as needed Mode of Arrival: Ambulatory Information source: Patient Notes: 23-year-old female presented to ED for suicidal thoughts. She states that she has been thinking of hurting herself. She did tell mobile crisis that her mother has a gun in her car and she plans to take it and use it on herself. She states she has been IVC before. Patient is alert and oriented respirations regular and unlabored answering all questions at this time. She is very [id number]. I have greeted and performed a rapid initial assessment of this patient. A comprehensive ED assessment and evaluation of the patient, analysis of test results and completion of medical decision making process will be conducted by an additional ED providers. TRAVEL OUTSIDE OF THE U.S. IN LAST 30 DAYS: No - Related Data Allergies/Adverse Reactions: Coconut * [Coconut] Allergy (Verified 01/06/19 16:41) oxcarbazepine [From Trileptal] Allergy (Verified 01/06/19 16:41) Past Medical History Renal/ Medical History: Denies: Hx Peritoneal Dialysis Psychiatric Medical History: Reports: Hx Anxiety, Hx Attention Deficit Hyperactivity Disorder, Hx Bipolar Disorder, Hx Depression - hx suicide attempts; cutting/ biting self - Immunizations Immunizations up to date: Yes Hx Diphtheria, Pertussis, Tetanus Vaccination: Yes Doctor's Discharge - Discharge Referrals: LANDEN PALMER [Primary Care Provider] - Follow up as needed
--- NOTE | 2019-01-30 17:52 | ER Document Report ---
ED General - General Mode of Arrival: Ambulatory Information source: Patient TRAVEL OUTSIDE OF THE [place] IN LAST 30 DAYS: No - Related Data Home Medications: busparone, prozac, prososin, vraylar, hydroxizine (OD a week ago with 30 tablets and was not seen by a provider). pt states that she has not been taking medications as prescribed. - General Chief Complaint: Suicidal Ideation Stated Complaint: IVC W PAPERS Time Seen by Provider: 01/30/19 17:00 Primary Care Provider: [facility] [Outside] - Follow up in 3-5 days [facility] [Outside] - Follow up as needed [facility] [NO LOCAL MD] - Follow up as needed - [facility] Notes: Patient is a 23-year-old female history of depression, anger management issues, schizoaffective disorder versus schizophrenia, bipolar, multiple personality disorder, ADHD, PTSD, OCD, defiance disorder presents the emergency department with report of suicidal ideation with thoughts that she may take her mother's 45 caliber gun from her car and should herself. The patient has had multiple previous involuntary commitments and multiple previous psychiatric evaluations and hospitalizations. Most recently was seen for the same suicidal ideation on 01/06/2019. The patient has been to [facility] multiple times. Patient states that her current suicidality is related to concern that her mother is going to move up to [place] to be with a potential new boyfriend. Apparently the patient lives with her stepfather and step grandmother and other family members in a house and the mother lives in a camper in the backyard on the property for the last 3 years. Patient denies any Chest pain, shortness breath, nausea, vomiting, fever, chills, constipation, diarrhea, dysuria. Patient reports no recent overdose in the last week, but she states 1 week ago she did overdose on her Vistaril and felt very somnolent and sleepy for a day and a half. Patient reports she is been intermittently compliant with her medications taking them when she feels like it, and is currently on Vistaril, Vraylan, Prazosin, Prozac, Buspar. 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 Family History: Reviewed & Not Pertinent Patient has suicidal ideation: Yes Patient has homicidal ideation: Yes Renal/ Medical History: Denies: Hx Peritoneal Dialysis Psychiatric Medical History: Reports: Hx Anxiety, Hx Attention Deficit Hyperactivity Disorder, Hx Bipolar Disorder, Hx Depression - hx suicide attempts; cutting/ biting self - Immunizations Immunizations up to date: Yes Hx Diphtheria, Pertussis, Tetanus Vaccination: Yes Review of Systems - Review of Systems -: Yes All other systems reviewed and negative Physical Exam - Vital signs Vitals: Temp Pulse Resp BP Pulse Ox 97.7 F 74 16 120/78 99 01/30/19 16:59 01/30/19 16:59 01/30/19 16:59 01/30/19 16:59 01/30/19 16:59 - Notes Notes: PHYSICAL EXAMINATION: GENERAL: Well-appearing, well-nourished and in no acute distress. HEAD: Atraumatic, normocephalic. EYES: Pupils equal round and reactive to light, extraocular movements intact, conjunctiva are normal. ENT: Nares patent, oropharynx clear without exudates. Moist mucous membranes. NECK: Normal range of motion, supple without lymphadenopathy LUNGS: Breath sounds clear to auscultation bilaterally and equal. No wheezes rales or rhonchi. HEART: Regular rate and rhythm without murmurs ABDOMEN: Soft, nontender, nondistended abdomen. No guarding, no rebound. No m asses appreciated. Female : deferred Musculoskeletal: Normal range of motion, no pitting or edema. No cyanosis. NEUROLOGICAL: Cranial nerves grossly intact. Normal speech, normal gait. Normal sensory, motor exams PSYCH: Patient has some flight of ideas and is somewhat animated in her discus martinez. She is very suspect in her responses and her report of suicidality and her prior history. Patient currently denies homicidality. She describes no active hallucinations. SKIN: Warm, Dry, normal turgor, no rashes or lesions noted. (CURT CAMPOVERDE) Course - Laboratory Result Diagrams: 01/30/19 18:19 01/30/19 18:19 - EKG Interpretation by Me EKG shows normal: Sinus rhythm Rate: Normal Rhythm: NSR - Re-evaluation Re-evalutation: 01/30/19 20:24 Patient was seen and evaluated by psychiatry who agreed that the patient is not a imminent risk to herself or others at the time. The patient contracted for safety and was stable for release back home. Patient will follow-up with her regular crisis counselor. Patient does not meet involuntary commitment criteria at the current time. 01/30/19 20:26 (CURT CAMPOVERDE) - Vital Signs Vital signs: Temp Pulse Resp BP Pulse Ox 97.7 F 74 16 120/78 99 01/30/19 16:59 01/30/19 16:59 01/30/19 16:59 01/30/19 16:59 01/30/19 16:59 - Laboratory Laboratory results interpreted by me: 01/30/19 01/30/19 18:19 18:19 RDW 14.7 H BUN 4 L Glucose 70 L Salicylates < 1.0 L Acetaminophen < 10 L - EKG Interpretation by Me Additional EKG results interpreted by me: 01/30/19 18:35 EKG is interpreted by me showed normal sinus rhythm heart rate of 70. There is no gross evidence for acute RI or ischemia noted. There is no significant change as compared to previous EKG reviewed from 01/06/2019. (CURT CAMPOVERDE) Discharge - Discharge Clinical Impression: Suicidal ideation, Medical non-compliance, Borderline personality disorder in adult Disposition: HOME, SELF-CARE Additional Instructions: You have been evaluated both medical and behavioral teams have been deemed appropriate for discharge. You are highly encouraged to record the outpatient mental health provider in CBT or DBT to better interpret your environment, understand your triggers, and learn positive coping skills. It is also recommended to take your medications as prescribed to help with your mental health symptoms. Please follow-up with your outpatient mental health provider for continued medication management and therapeutic services. DEPRESSION: Your evaluation reveals that you have mental depression. While symptoms may be vague, they often include disturbance of sleep, fatigue, loss of appetite, and general loss of interest in life. While depression may be a side effect of drugs, or a reaction to a major change in your life, many cases have no known cause. If depression is acute, and related to a major loss in your life, you can expect it to clear completely with time. If you have been depressed a long time, are prone to repeated bouts of depression or low mood, or have been thinking of suicide, get help. Depression can be treated with anti-depressant medication and counselling. Long-term depression will often take a few weeks to clear, even with appropriate medication. Follow-up care is important. SUICIDAL IDEATION: Suicidal ideation is a common medical term for thoughts about suicide, which may be as detailed as a formulated plan, without the suicidal act itself. Although most people who undergo suicidal ideation do not commit suicide, some go on to make suicide attempts. The range of suicidal ideation varies greatly from fleeting to detailed planning, role playing, and unsuccessful attempts. While thoughts about suicide are common, most people do not carry out serious actions to commit suicide. Based upon your evaluation and discussion with you, we do not believe you are currently at risk to act upon your thoughts of suicide. You have agreed to return to the Emergency Department, at any time, if you feel inclined to act upon your suicidal thoughts. FOLLOW-UP CARE: If you have been referred to a physician for follow-up care, call the [facility] office for an appointment as you were instructed or within the next two days. If you experience worsening or a significant change in your symptoms, notify the physician immediately or return to the Emergency Department at any time for re-evaluation. [facility] [NO [facility]AL MD] - Follow up as needed [facility] [Outside] - Follow up as needed [facility] [Outside] - Follow up in 3-5 days
[2019-01-30 18:06] LABS: APPEARANCE,URINE SLIGHTLY-CLOUDY; BILIRUBIN,URINE NEGATIVE (NEGATIVE); COLOR,URINE STRAW; GLUCOSE, URINE NEGATIVE (NEGATIVE); KETONES,URINE NEGATIVE (NEGATIVE); LEUKOCYTE ESTERASE,URINE NEGATIVE (NEGATIVE); NITRITE,URINE NEGATIVE (NEGATIVE); PROTEIN,URINE NEGATIVE (NEGATIVE); URINE SPECIFIC GRAVITY 1.003; UROBILINOGEN,URINE NEGATIVE mg/dL (<2.0)
[2019-01-30 18:19] LABS: URINE AMPHETAMINES SCREEN NEGATIVE; URINE BARBITURATES SCREEN UNCONFIRMED POSITIVE; URINE BENZODIAZEPINES SCREEN NEGATIVE; URINE COCAINE SCREEN NEGATIVE; URINE MARIJUANA (THC) SCREEN NEGATIVE; URINE METHADONE SCREEN NEGATIVE; URINE PHENCYCLIDINE SCREEN NEGATIVE
[2019-01-30 18:30] LABS: ABSOLUTE LYMPHOCYTES (AUTO) 2.3 10^3/uL (0.5-4.7); ABSOLUTE MONOCYTES (AUTO) 0.4 10^3/uL (0.1-1.4); ABSOLUTE NEUT (AUTO) 6.6 10^3/uL (1.7-8.2); BASOPHILS % (AUTO) 0.5 % (0-2); EOSINOPHILS % (AUTO) 0.2 % (0-6); HEMATOCRIT 38.6 % (36.0-47.0); HEMOGLOBIN 12.6 g/dL (12.0-15.5); LYMPHOCYTES % (AUTO) 24.3 % (13-45); MEAN CORPUSCULAR HEMOGLOBIN 27.9 pg (27.0-33.4); MEAN CORPUSCULAR HGB CONC 32.7 g/dL (32.0-36.0); MEAN CORPUSCULAR VOLUME 85 fl (80-97); MONOCYTES % (AUTO) 4.2 % (3-13); PLATELET COUNT 328 10^3/uL (150-450); RED BLOOD COUNT 4.52 10^6/uL (3.72-5.28); RED CELL DISTRIBUTION WIDTH 14.7 % (11.5-14.0); SEGMENTED NEUTROPHILS % (AUTO) 70.8 % (42-78); TOTAL CELLS COUNTED % (AUTO) 100 %; WHITE BLOOD COUNT 9.4 10^3/uL (4.0-10.5)
[2019-01-30 18:51] LABS: ALBUMIN 4.1 g/dL (3.5-5.0); ALKALINE PHOSPHATASE 59 U/L (38-126); ANION GAP 7 (5-19); ASPARTATE AMINO TRANSFERASE 19 U/L (14-36); BILIRUBIN,TOTAL 0.4 mg/dL (0.2-1.3); BLOOD UREA NITROGEN 4 mg/dL (7-20); CALCIUM 9.3 mg/dL (8.4-10.2); CARBON DIOXIDE 28 mmol/L (22-30); CHLORIDE 103 mmol/L (98-107); GLUCOSE 70 mg/dL (75-110); POTASSIUM 4.2 mmol/L (3.6-5.0)
[2019-01-30 18:52] LABS: ACETAMINOPHEN < 10 ug/mL (10-30); ALCOHOL < 10 mg/dL (NONE DETECTED); SALICYLATE < 1.0 mg/dL (2.0-20.0)
[2019-01-30] MEDS ORDERED: LORAZEPAM 1 MG TABLET PO ONE (19:27)
[2019-01-30 20:39] VITALS: BP 114/61
--- NOTE | 2019-01-31 09:26 | EKG REPORT ---
SEVERITY:- BORDERLINE ECG - SINUS RHYTHM BORDERLINE T ABNORMALITIES, ANTERIOR LEADS : Confirmed by: Krystle Tay MD 31-Jan-2019 09:25:47
--- NOTE | 2019-01-31 10:39 | PSYCHOLOGICAL NOTE ---
Psych Note - Psych Note Date seen by psych provider: 01/30/19 Time seen by psych provider: 19:15 Psych Note: Met with Patient who indicated since her previous admission to the ED at the beginning of the month she has been to the [facility] twice for a 5 day stay each, for complaints of "suicidal ideation." Patient reported on today's date she went to see her [facility] therapist "T" accompanied by her mother and her therapist advised the patient she could not be committed to a psych hospital unless "I was suicidal." Patient reported she then advised her therapist she was suicidal which triggered an IVC and transport via EMS to [facility] for evaluation. Patient reported 40-50 hospitalizations since the age of 13 and she likes coming to the hospital for a "breather." Patient reported she does not like to "adult" because it is "hard" and " I had a hard childhood." Patient admitted during conversation she uses suicidal ideation as a way to enter the hospital system and "get away from life." Patient reported she likes being taken care of because "my mother took care of me the way she was supposed too when I was a child." I had a very candid conversation with the Patient regarding the purpose of hospital and the need for Patient to continue therapy and to use it appropriately. Discussed with Patient the need to develop adaptive coping vs maladaptive coping skills, develop healthy age appropriate relationships, and talk with her current mental health providers about other services such as psychosocial rehabilitation. Patient was not overly receptive to feedback as she stated "I'm quite comfortable being the victim and don't see the need to change." Patient made discharge sabotage attempts as evidenced by making statements such as "I am suicidal and I'll always be suicidal no matter what." Patient was alert and oriented to person, place, time and circumstance. Mood was labile, vacillating between smiling and laughing to irritability. Affect was mood congruent. She reported chronic suicidality and appeared to relish in the thought without intent or plan. She denied homicidal ideation, intention or plan. She denied auditory / visual hallucinations and delusions were absent. Conversational speech was within normal limits for rate, tone, and prosody. Intellectual abilities were estimated within the average range. Eye contact was well maintained. Attention and concentration was good while insight, judgment and impulse control was poor. No medication recommendations were made. Diagnoses: 1. Borderline Personality Disorder Impression / Plan: Patient is clear from psychiatric services and recommend rescind from IVC. Patient continues to utilize the hospital as a means to seek attention from her mother and therapist. Patient has at least 40-50 inpatient psychiatric hospitalizations in the past 10 years and she is unable to state how any of them have been helpful except to say they provide her "respite from my mother." Patient admitted to using suicidal ideation statements as a means for admission to the hospitals and once she has had enough of the hospital and is ready to go home, she tells the doctor she feels better. At this, inpatient psychiatric hospitalization is felt to be contraindicated and is the case going forward as she is felt to be abusing the healthcare and law enforcement systems. Patient was advised of such and told of the possible consequences of such behavior. Patient given resources and again encouraged to take her medications as prescribed. ED Physician in agreement with recommendations and disposition.
== END 2019-01-30 20:45 | disposition home or self-care (01) ==
LOC: ER 16:55
DX: R45.851 Suicidal ideations (principal); F60.3 Borderline personality disorder; F41.9 Anxiety disorder, unspecified; F31.9 Bipolar disorder, unspecified; T43.596A Underdosing of other antipsychotics and neuroleptics, initial encounter; T44.6X6A Underdosing of alpha-adrenoreceptor antagonists, initial encounter; T43.226A Underdosing of selective serotonin reuptake inhibitors, initial encounter; Z91.128 Patient's intentional underdosing of medication regimen for other reason; Z91.19 Patient's noncompliance with other medical treatment and regimen; F17.200 Nicotine dependence, unspecified, uncomplicated; Z91.018 Allergy to other foods; Z88.8 Allergy status to other drugs, medicaments and biological substances
CPT/HCPCS: 36415; 80053; 80307; 81001; 81025; 85025; 93005; 93010; 99285

== ENCOUNTER 2019-02-23 19:14 | Emergency (ER) | payer OTHER ==
[2019-02-23] MEDS ORDERED: IBUPROFEN 600 MG TABLET PO ONE (21:06)
--- NOTE | 2019-02-23 21:09 | ER Document Report ---
HPI - HPI Time Seen by Provider: 02/23/19 21:00 Pain Level: 4 Context: Patient is a 23-year-old female who presents to the emergency department with a chief complaint of left hip pain. Patient reports for 1 week she has had left hip pain. Patient denies a fall or a specific injury but does report doing a lot of heavy lifting at work. Patient reports today she felt like her hip was popping in and out of place. Patient states the pain is only in her hip and does not radiate to her back or down her leg. Patient denies numbness or tingling to her lower extremities. Patient denies loss of bowel or bladder. Patient reports movement makes the pain worse. Patient denies urinary symptoms. - REPRODUCTIVE LMP: 02/17/19 Reproductive: DENIES: : Past Medical History - General Information source: Patient - Social History Smoking Status: Current Every Day Smoker Frequency of alcohol use: Occasional Drug Abuse: None Lives with: Family Family History: Reviewed & Not Pertinent Patient has suicidal ideation: No Patient has homicidal ideation: No - Past Medical History Cardiac Medical History: Reports: None Pulmonary Medical History: Reports: None EENT Medical History: Reports: None Neurological Medical History: Reports: None Endocrine Medical History: Reports: None Renal/ Medical History: Reports: None. Denies: Hx Peritoneal Dialysis Malignancy Medical History: Reports: None GI Medical History: Reports: None Musculoskeletal Medical History: Reports None Skin Medical History: Reports None Psychiatric Medical History: Reports: Hx Anxiety, Hx Attention Deficit Hyperactivity Disorder, Hx Bipolar Disorder, Hx Depression - hx suicide attempt s; cutting/ biting self Traumatic Medical History: Reports: None Infectious Medical History: Reports: None Surgical Hx: Negative - Immunizations Immunizations up to date: Yes Hx Diphtheria, Pertussis, Tetanus Vaccination: Yes Vertical Provider Document - CONSTITUTIONAL Agree With Documented VS: Yes Exam Limitations: No Limitations General Appearance: No Apparent Distress - INFECTION CONTROL TRAVEL OUTSIDE OF THE [place] IN LAST 30 DAYS: No - HEENT HEENT: Atraumatic, Normal ENT Exam, Normocephalic, PERRLA - NECK Neck: Normal Inspection - RESPIRATORY Respiratory: Breath Sounds Normal, No Respiratory Distress - CARDIOVASCULAR Cardiovascular: Regular Rate, Regular Rhythm - GI/ABDOMEN Gastrointestinal: Abdomen Soft, Abdomen Non-Tender, Normal Bowel Sounds - BACK Back: Normal Inspection - MUSCULOSKELETAL/EXTREMETIES Musculoskeletal/Extremeties: FROM, Tender Notes: Patient has tenderness to the left hip. Patient is able to ambulate with a steady gait. - NEURO Level of Consciousness: Awake, Alert, Appropriate - DERM Integumentary: Warm, Dry, No Rash Course - Re-evaluation Re-evalutation: 02/23/19 21:08 We will obtain an x-ray of the left hip and give the patient ibuprofen for her discomfort as she reports not taking anything for her discomfort prior to arrival. - Vital Signs Vital signs: Temp Pulse Resp BP Pulse Ox 97.8 F 82 20 125/76 100 02/23/19 19:38 02/23/19 19:38 02/23/19 19:38 02/23/19 19:38 02/23/19 19:38 - Diagnostic Test Radiology reviewed: Reports reviewed Radiology results interpreted by me: 02/23/19 21:52 Hip X-Ray 02/23/19 21:05 IMPRESSION: No acute findings in the left hip. Discharge - Discharge Clinical Impression: Left hip pain Condition: Stable Disposition: HOME, SELF-CARE Additional Instructions: Today are seen the emergency department for hip pain. The x-ray was negative for any acute bony abnormality such as a fracture or dislocation. It is unsure if you have pulled a muscle, tendon or ligament when you performing heavy lifting last week. Please use Tylenol and ibuprofen as needed for pain. Please rest over the next few days. Please follow-up with orthopedics in the next few weeks if you continue to have the discomfort of the left hip. Please return the emergency department if your symptoms worsen or change such as radiation of pain down the leg, numbness or tingling down the leg, loss of bowel or bladder or any new or worsening symptoms. Forms: Return to Work Referrals: MEDHAT ARANA JR, [ACTIVE PROVISIONAL STAFF] - Follow up as needed
--- NOTE | 2019-02-23 21:50 | RADIOLOGY REPORT (SQ) ---
EXAM DESCRIPTION: CLINICAL HISTORY: 23 years Female, left hip pain COMPARISON: None. FINDINGS: No evidence for fracture dislocation. No suspicious arthritic changes or soft tissue abnormalities. No asymmetry with the right hip. IMPRESSION: No acute findings in the left hip.
[2019-02-24 06:54] VITALS: BP 119/74
== END 2019-02-23 22:15 | disposition home or self-care (01) ==
LOC: ER 19:14
DX: M25.552 Pain in left hip (principal); F17.200 Nicotine dependence, unspecified, uncomplicated
CPT/HCPCS: 99283